=== PATIENT | female | born 1985 | race Caucasian/White ===

== ENCOUNTER 2018-12-05 12:17 | Emergency (ER) | payer SELFPAY ==
[2018-12-05 12:42] LABS: Bacteria/HPF Rare-Few HPF (None Seen); Bilirubin Negative (Negative); Blood, Urine Negative (Negative); Clarity Clear (Clear); Glucose, Urine (Dipstick) Negative (Negative); Leukocyte Small (Negative); Nitrite Negative (Negative); Protein, Urine (Dipstick) Negative (Neg-Trace); RBC/HPF 0-3 HPF (0-3); Squamous Epithelial 0-3 HPF (0-3); Urobilinogen 0.2 mg/dL (0.2-1.0); WBC/HPF 0-3 HPF (0-3)
[2018-12-05 12:43] LABS: Pregnancy Test - Urine (BHCG) Negative (Negative); Pregu Control Background? CLEAR/WHITE (CLR/WHITE); Pregu Control Bar Appear? YES (CONTROL BAR)
--- NOTE | 2018-12-05 23:16 | RAD ---
LUMBAR SPINE THREE VIEWS: 12/05/18 A prominent thoracolumbar scoliosis convexed right is present with an angle of curvature of approxima tely 17 degrees. No acute fracture was seen. There is no disc space narrowing or other bony anomalie s of concern. The SI joints are symmetrical. A calcific density is seen overlying the left kidney. Th is potentially could be in bowel rather than a renal calculus. IMPRESSION: Scoliosis but no significant findings otherwise. POS: HOME
== END 2018-12-05 13:40 | disposition home or self-care (01) ==
LOC: BURERS 12:17
DX: S30.0XXA Contusion of lower back and pelvis, initial encounter (principal); F17.210 Nicotine dependence, cigarettes, uncomplicated; I10 Essential (primary) hypertension; F41.9 Anxiety disorder, unspecified; Z79.899 Other long term (current) drug therapy; W17.89XA Other fall from one level to another, initial encounter
CPT/HCPCS: 72100; 81003; 81015; 81025